=== PATIENT | female | born 1940 | race Asian ===

== ENCOUNTER → 2018-01-04 | Outpatient (CLI) | payer MEDICARE, OTHER | END | disposition home or self-care (01) | LOC: RADPV 09:34 | PROVIDERS: ATTEND Internal Medicine Nephrology | DX: Z47.1 Aftercare following joint replacement surgery (principal); M25.511 Pain in right shoulder; Z96.652 Presence of left artificial knee joint | CPT/HCPCS: 76770 ==

== ENCOUNTER → 2018-01-19 | Outpatient (CLI) | payer MEDICARE, OTHER ==
[2018-01-19 12:39] LABS: BASOPHILS % (AUTO) 1.9 % (0.0-2.0); EOSINOPHILS % (AUTO) 3.3 % (1.0-6.0); HEMATOCRIT 29.8 % (36-46); HEMOGLOBIN 9.9 g/dL (12.0-16.0); LYMPHOCYTES # (AUTO) 0.9 K/uL (1.0-4.8); LYMPHOCYTES % (AUTO) 13.8 % (22.0-44.0); MEAN CORPUSCULAR HEMOGLOBIN 28.6 pg (26.0-34.0); MEAN CORPUSCULAR HGB CONC 33.3 G/dL (31.0-37.0); MEAN CORPUSCULAR VOLUME 86 fL (80-100); MONOCYTES # (AUTO) 0.4 K/uL (0.1-1.0); MONOCYTES % (AUTO) 5.9 % (2.0-9.0); NEUTROPHILS % (AUTO) 75.1 % (40.0-70.0); PLATELET COUNT (AUTO) 314 K/uL (150-450); RED BLOOD CELL COUNT(AUTO) 3.48 MIL/uL (4.00-5.20); RED CELL DISTRIBUTION WIDTH 14.5 % (11.5-14.5)
[2018-01-19 13:03] LABS: HEMOGLOBIN A1C 6.6 % (4.5-6.2)
[2018-01-19 13:18] LABS: ALBUMIN 3.5 g/dL (3.4-5.0); CALCIUM, TOTAL 8.7 mg/dL (8.8-10.5); CHOL/HDL RATIO 3.8 (3.9-5.7); CREATININE 2.33 mg/dL (0.60-1.30); MAGNESIUM 2.2 mg/dL (1.80-2.40); PHOSPHORUS 4.3 mg/dL (2.5-4.9); POTASSIUM 5.8 mmol/L (3.5-5.1); THYROID STIMULATING HORMONE 9.01 uIU/mL (0.36-3.74)
[2018-01-19 13:39] LABS: APPEARANCE,URINE CLEAR (CLEAR); BILIRUBIN,URINE NEGATIVE (NEGATIVE); GLUCOSE, URINE (UA) NEGATIVE (NEGATIVE); KETONES,URINE NEGATIVE (NEGATIVE); LEUKOCYTE ESTERASE ,URINE NEGATIVE (NEGATIVE); NITRATE,URINE NEGATIVE (NEGATIVE); OCCULT BLOOD,URINE NEGATIVE (NEGATIVE); PH,URINE 5.5 (5.0-8.0); PROTEIN,URINE SEE CONFIRM (NEGATIVE); UROBILINOGEN,URINE 0.2 mg/dL (<=1.0)
[2018-01-19 14:09] LABS: SULFOSALICYLIC ACID,URINE 3+ (Negative)
[2018-01-19 14:11] LABS: BACTERIA,URINE None Seen /HPF (None Seen); RBC,URINE 0-2 /HPF (0-2); RENAL EPITHELIAL CELLS,URINE Few /LPF (None Seen); SQUAMOUS EPITHELIAL CELL,UR Few /LPF (None Seen); TRANSITIONAL EPI CELLS,URINE Few /LPF (None Seen); WBC,URINE 0-2 /HPF (0-5)
[2018-01-19 16:10] LABS: CREATININE,URINE 76.3 mg/dL (30.0-125.0)
[2018-01-19 16:13] LABS: CREATININE,SERUM FOR CRCL 2.33 mg/dL (0.60-1.30)
[2018-01-20 08:23] LABS: HIV 1-2 SCREEN 4TH GEN W/RFLX Non Reactive (Non Reactive)
== END | disposition home or self-care (01) ==
LOC: LABPV 01-18 08:49
PROVIDERS: ATTEND Internal Medicine Nephrology
DX: E11.9 Type 2 diabetes mellitus without complications (principal); E78.5 Hyperlipidemia, unspecified; E55.9 Vitamin D deficiency, unspecified; E03.9 Hypothyroidism, unspecified; N04.9 Nephrotic syndrome with unspecified morphologic changes
CPT/HCPCS: 81050; 82043; 82306; 82570; 82575; 83036; 83735; 83970; 84156; 84443; 85651; 86038; 86140; 86160; 86225; 86256; 86704; 86706; 86803; 87340; 87389

== ENCOUNTER → 2018-03-24 | Outpatient (CLI) | payer MEDICARE, OTHER ==
[2018-03-24 11:37] LABS: BASOPHILS % (AUTO) 2.1 % (0.0-2.0); EOSINOPHILS % (AUTO) 3.9 % (1.0-6.0); HEMATOCRIT 30.5 % (36-46); HEMOGLOBIN 10.3 g/dL (12.0-16.0); LYMPHOCYTES # (AUTO) 0.9 K/uL (1.0-4.8); LYMPHOCYTES % (AUTO) 13.4 % (22.0-44.0); MEAN CORPUSCULAR HEMOGLOBIN 28.2 pg (26.0-34.0); MEAN CORPUSCULAR HGB CONC 33.7 G/dL (31.0-37.0); MEAN CORPUSCULAR VOLUME 84 fL (80-100); MONOCYTES # (AUTO) 0.4 K/uL (0.1-1.0); MONOCYTES % (AUTO) 6.5 % (2.0-9.0); NEUTROPHILS % (AUTO) 74.1 % (40.0-70.0); PLATELET COUNT (AUTO) 286 K/uL (150-450); RED BLOOD CELL COUNT(AUTO) 3.63 MIL/uL (4.00-5.20); RED CELL DISTRIBUTION WIDTH 14.4 % (11.5-14.5); RETICULOCYTE % (AUTO) 1.5 % (0.5-2.3)
[2018-03-24 12:06] LABS: FOLATE SERUM 20.4 ng/mL (5.4-)
[2018-03-24 12:12] LABS: PROTEIN,URINE RANDOM 310 mg/dL (0-11.9)
[2018-03-24 12:21] LABS: APPEARANCE,URINE CLEAR (CLEAR); BILIRUBIN,URINE NEGATIVE (NEGATIVE); GLUCOSE, URINE (UA) 500 mg/dL (NEGATIVE); KETONES,URINE NEGATIVE (NEGATIVE); LEUKOCYTE ESTERASE ,URINE NEGATIVE (NEGATIVE); NITRATE,URINE NEGATIVE (NEGATIVE); OCCULT BLOOD,URINE NEGATIVE (NEGATIVE); PH,URINE 5.5 (5.0-8.0); PROTEIN,URINE SEE CONFIRM (NEGATIVE); UROBILINOGEN,URINE 0.2 mg/dL (<=1.0)
[2018-03-24 12:30] LABS: HEMOGLOBIN A1C 8.5 % (4.5-6.2)
[2018-03-24 12:34] LABS: % IRON SATURATION 14.9 % (22-44)
[2018-03-24 12:51] LABS: ALBUMIN 3.6 g/dL (3.4-5.0); CALCIUM, TOTAL 8.8 mg/dL (8.8-10.5); CREATININE 2.72 mg/dL (0.60-1.30); MAGNESIUM 2.5 mg/dL (1.80-2.40); PHOSPHORUS 5.4 mg/dL (2.5-4.9); POTASSIUM 5.3 mmol/L (3.5-5.1)
[2018-03-24 13:31] LABS: BACTERIA,URINE Few /HPF (None Seen); RBC,URINE None Seen /HPF (0-2); SQUAMOUS EPITHELIAL CELL,UR Few /LPF (None Seen); SULFOSALICYLIC ACID,URINE 4+ (Negative); WBC,URINE 0-2 /HPF (0-5)
[2018-03-25 08:43] LABS: TRIIODOTHYRONINE TOTAL 66 ng/dL (71-180)
[2018-03-25 11:55] LABS: ALPHA-1 (IFE & PEP) 0.2 g/dL (0.0-0.4); IGM (IMMUNOFIXATION) 67 mg/dL (26-217)
== END | disposition home or self-care (01) ==
LOC: LABPV 09:32
PROVIDERS: ATTEND Internal Medicine Nephrology
DX: I12.9 Hypertensive chronic kidney disease with stage 1 through stage 4 chronic kidney disease, or unspecified chronic kidney disease (principal); E11.22 Type 2 diabetes mellitus with diabetic chronic kidney disease; N18.4 Chronic kidney disease, stage 4 (severe); D63.1 Anemia in chronic kidney disease
CPT/HCPCS: 82043; 82570; 82607; 82728; 82746; 82784; 83036; 83540; 83550; 83735; 84155; 84156; 84165; 84436; 84466; 84480; 85045; 86334